=== PATIENT | female | born 1990 | race Caucasian/White ===

== ENCOUNTER 2017-03-08 21:15 | Emergency (ER) | payer OTHER ==
[2017-03-08 21:33] VITALS: BP 114/66; PULSE 81; TEMP 98.4; BMI 30.3
[2017-03-08 22:00] LABS: URINE APPEARANCE Clear; URINE BILIRUBIN Negative (NEGATIVE); URINE BLOOD 1+ (NEGATIVE); URINE GLUCOSE (UA) Negative (NEGATIVE); URINE KETONE Negative (NEGATIVE); URINE NITRITE Negative (NEGATIVE); URINE PROTEIN Negative (NEGATIVE); URINE UROBILINOGEN 0.2 (0.2-1.0)
[2017-03-08 22:02] LABS: URINE COLOR YELLOW; URINE LEUK ESTERASE TRACE (NEGATIVE)
[2017-03-08 22:15] LABS: BASOPHIL 1.5 % (0-2.0); EOSINOPHIL 4.3 % (0-4.5); MCH 29.2 pg (25.7-33.7); MEAN CELL VOLUME 86.1 fl (80-96); MEAN PLT VOLUME 11.1 fl (7.5-11.1); NEUTROPHILS 48.1 % (42.8-82.8); PLATELET COUNT 195 K/MM3 (134-434); WHITE BLOOD COUNT 8.3 K/mm3 (4.0-10.8)
--- NOTE | 2017-03-08 22:26 | PDOC ---
History of Present Illness - General Chief Complaint: ,Possible Stated Complaint: SPOTTING. 8 WKS Time Seen by Provider: 03/08/17 21:29 History Source: Patient Exam Limitations: No Limitations - History of Present Illness Initial Comments: 03/08/17 22:24 26 yo F currently 5 weeks by recent ultrasound here with /co vaginal spotting. was pink and now brownish. was earlier today. has had cramping for 4 days. no pain. no h/o ectopic, no bright red blood. no mod factors. Past History - Past Medical History Allergies/Adverse Reactions: Allergies Allergy/AdvReac Type Severity Reaction Status Date / Time No Known Allergies Allergy Verified 03/08/17 21:18 Home Medications: Ambulatory Orders Pnv with Ca,No.72/Iron,Carb/FA [ Plus Iron Tablet] 1 each PO DAILY 03/08 Thyroid Disease: No - Reproductive History Is Patient Now?: Yes - Immunization History Immunization Up to Date: No - Psycho/Social/Smoking Cessation Hx Anxiety: No Suicidal Ideation: No Smoking Status: No Smoking History: Never smoked Have you smoked in the past 12 months: No Number of Cigarettes Smoked Daily: 0 Hx Alcohol Use: No Drug/Substance Use Hx: No Substance Use Type: None Abd/GI Specific PMHX - Complaint Specific PMHX GERD: No Review of Systems - Review of Systems Constitutional: No: Chills, Diaphoresis HEENTM: No: Eye Pain Respiratory: No: Cough, Orthopnea Cardiac (ROS): No: Chest Pain, Edema ABD/GI: No: Abdominal Distended, Nausea, Poor Appetite : Yes: Other (vaginal spotting.). No: Burning, Dysuria Musculoskeletal: No: Back Pain All Other Systems: Reviewed and Negative *Physical Exam - Vital Signs Last Vital Signs Temp Pulse Resp BP Pulse Ox 98.4 F 81 15 114/66 100 03/08/17 21:18 03/08/17 21:18 03/08/17 21:18 03/08/17 21:18 03/08/17 21:18 - Physical Exam General Appearance: Yes: Nourished Respiratory/Chest: positive: Lungs Clear, Normal Breath Sounds. negative: Chest Tender Cardiovascular: positive: Regular Rhythm, Regular Rate, S1, S2. negative: Edema Gastrointestinal/Abdominal: positive: Normal Bowel Sounds, Flat, Soft. negative : Tender Musculoskeletal: positive: Normal Inspection. negative: CVA Tenderness Extremity: positive: Normal Capillary Refill, Normal Inspection, Normal Range of Motion Integumentary: positive: Normal Color, Dry, Warm Neurologic: positive: Fully Oriented, Alert, Normal Mood/Affect Procedures - Bedside Ultrasound Bedside Ultrasound: front office medical assistant Other: focused TVUS ob, see MDM for report ED Treatment Course - LABORATORY CBC & Chemistry Diagram: 03/08/17 22:00 03/08/17 22:00 - ADDITIONAL ORDERS Additional order review: Laboratory Results 03/08/17 21:50 Urine Color Yellow Urine Appearance Clear Urine pH 8.0 Ur Specific [place] 1.015 Urine Protein Negative Urine Glucose (UA) Negative Urine Ketones Negative Urine Blood 1+ Urine Nitrite Negative Urine Bilirubin Negative Urine Urobilinogen 0.2 Ur Leukocyte Esterase Trace H Urine HCG, Qual Positive 03/08/17 22:00 RBC 4.30 MCV 86.1 MCHC 34.0 RDW 13.0 MPV 11.1 Neutrophils % 48.1 Lymphocytes % 41.6 H Monocytes % 4.5 Eosinophils % 4.3 D Basophils % 1.5 Medical Decision Making - Medical Decision Making 03/08/17 22:25 r/o ectopic, vsl incomplete vs. threatened ab. plan us, labs blood type. pt RH negative. pt no active bleeding on pelvic exam. will follow up with OB as scheduled in 2 days and obtain rhogham at that time if indicated. currently no bleeding to indicate its necessary. dc home. 03/08/17 22:48 focused ED ultrasound transvaginal OB, indication: vaginal spotting. uterus scanned in two planes both transabdominally and transvaginally. gestational sac noted. pole and yolk sac noted. pole measuring .24 cm. no free fluid noted in adnexa. impression: IUP. *DC/Admit/Observation/Transfer Diagnosis at time of Disposition: Threatened - Discharge Dispostion Disposition: HOME Condition at time of disposition: Improved - Patient Instructions Printed Discharge Instructions: Threatened Additional Instructions: nothing per vagina until follow up with your E LEARNING COORDINATOR. you have an intrauterine wtih a yolk sac and pole visible today on ultrasound. follow up with your vp software support for repeat evaluation. if you develop bright red bleeding or any severe pain, return for repeat evaluation.
[2017-03-08 22:42] LABS: ALBUMIN 3.9 g/dl (3.5-5.0); ALK PHOS 56 U/L (32-92); ANION GAP 6 (8-16); CO2 26 mmol/L (22-28); CREATININE 0.8 mg/dl (0.6-1.3); GLUCOSE,RANDOM 96 mg/dl (74-106); SGOT/AST 18 U/L (10-42); SGPT/ALT 18 U/L (10-40); TOT PROT 7.1 g/dl (6.4-8.3)
[2017-03-08 22:55] LABS: BILIRUBIN,TOTAL 0.4 mg/dl (0.2-1.0)
== END 2017-03-08 22:56 | disposition home or self-care (01) ==
LOC: FER 21:15
DX: O20.0 Threatened abortion (principal); Z3A.01 Less than 8 weeks gestation of pregnancy
CPT/HCPCS: 36415; 80053; 81003; 81015; 84702; 84703; 85025; 86850; 86900; 86901; 99281-25; 99282-25